=== PATIENT | female | born 1995 | race Two or more races ===

== ENCOUNTER 2024-06-04 18:49 | Observation (INO) | payer MEDICAID ==
[~2024-06-04] VITALS: Ht 162.6 cm; Wt 63.5 kg
[2024-06-04] MEDS ORDERED: PREN-96 PO (20:02)
== END 2024-06-04 20:10 | disposition home or self-care (01) ==
LOC: LDRP 18:49
PROVIDERS: ADMIT Obstetrics & Gynecology; ATTEND Obstetrics & Gynecology
DX: O36.8130 Decreased fetal movements, third trimester, not applicable or unspecified (principal); Z3A.32 32 weeks gestation of pregnancy
CPT/HCPCS: 59025; 76818; 81002; 94760; G0378

== ENCOUNTER 2024-07-10 19:55 | Observation (INO) | payer MEDICAID ==
[~2024-07-10] VITALS: Ht 162.6 cm; Wt 65.8 kg
[~2024-07-10 19:55] MED LIST: PREN-96 PO
== END 2024-07-10 22:17 | disposition home or self-care (01) ==
LOC: LDRP 19:55
PROVIDERS: ADMIT Obstetrics & Gynecology; ATTEND Obstetrics & Gynecology
DX: O69.81X0 Labor and delivery complicated by cord around neck, without compression, not applicable or unspecified (principal); Z3A.37 37 weeks gestation of pregnancy
CPT/HCPCS: 59025; 76818; 81002; 94760; G0378

== ENCOUNTER 2024-07-17 11:16 | Observation (INO) | payer MEDICAID | END 2024-07-17 12:51 | disposition home or self-care (01) | LOC: UNDOADMOB 11:16 → LDRP 11:16 → UNDODISOB 12:51 | PROVIDERS: ADMIT Obstetrics & Gynecology; ATTEND Obstetrics & Gynecology | DX: O69.81X0 Labor and delivery complicated by cord around neck, without compression, not applicable or unspecified (principal); Z3A.38 38 weeks gestation of pregnancy; Z79.899 Other long term (current) drug therapy | CPT/HCPCS: 59025; 76818; 81002; G0378 ==